=== PATIENT | female | born 1975 | race Two or more races ===

== ENCOUNTER 2016-09-28 19:35 | Inpatient (IN) | payer OTHER ==
[2016-09-28 20:49] VITALS: BMI 29.0
[2016-09-28 20:50] LABS: BASOPHIL 0.5 % (0-2.0); EOSINOPHIL 0.5 % (0-4.5); MCH 26.8 pg (25.7-33.7); MCHC 32.4 g/dl (32.0-36.0); MEAN CELL VOLUME 82.6 fl (80-96); MEAN PLT VOLUME 9.4 fl (7.5-11.1); NEUTROPHILS 81.1 % (42.8-82.8); PLATELET COUNT 282 K/MM3 (134-434); RDW 15.2 % (11.6-15.6); WHITE BLOOD COUNT 14.3 K/mm3 (4.0-10.0)
[2016-09-28 21:00] LABS: INR 0.97 (0.82-1.09); PROTHROMBIN TIME (PATIENT) 10.7 SEC (9.98-11.88)
[2016-09-28 21:03] LABS: ACTIVATED PTT 28.2 SECONDS (26.9-34.4)
[2016-09-28 21:14] LABS: CALCIUM 9.1 mg/dL (8.5-10.1); COCKROFT - GAULT 166.5745; CREATININE 0.5 mg/dL (0.55-1.02)
[2016-09-28 21:26] LABS: HIV 1 & 2 AB NEGATIVE; HIV 1 AGp24 NEGATIVE
[2016-09-28] MEDS ORDERED: CITRIC ACID/SODIUM CITRATE 30 ML UNIT-DOSE CUP PO ONE (21:27)
[2016-09-28] MEDS ORDERED: METHYLERGONOVINE MALEATE 0.2 MG/1 ML AMP IM PRN (21:27)
--- NOTE | 2016-09-28 21:27 | HP ---
Admitting History and Physical - Admission Chief Complaint: breech in labor , srom, meconium History of Present Illness: 41 y/o G4 at term breech with mecoimun. History Source: Patient Limitations to Obtaining History: No Limitations - Past Medical History RESEARCH PROGRAM MANAGER: No: Alzheimer's, CVA, Dementia, Migraine, Multiple Sclerosis, Peripheral Neuropathy, Parkinson's, Seizure, Syncope, TIA, Vertigo, Other Cardiovascular: No: AFIB, Aneurysm, Aortic Insufficiency, Aortic Stenosis, CAD, CHF, Deep Vein Thrombosis, HTN, Hyperlipdemia, MO, Mitral Insufficiency, Mitral Stenosis, Murmur, Pulmonary Hypertension, Other Pulmonary: No: Asthma, Bronchitis, Cancer, COPD, O2 Dependent, Pneumonia, Previously Intubated, Pulmonary Embolus, Pulmonary Fibrosis, Sleep Apnea, Other Gastrointestinal: No: Ascites, Cancer, Constipation, Crohn's Disease, Diverticulitis, Diverticulosis, Esophageal Varices, Gastritis, GERD, GI Bleed, Hemorrhoids, Hiatal Hernia, Inflamatory Bowel Disease, Irritable Bowel Disease, Pancreatitis, Peptic Ulcer Disease, Ulcerative Colitis, Other Hepatobiliary: No: Cirrhosis, Cholelithiasis, Cholecystitis, Choledocholithiasis , Hepatitis A, Hepatitis B, Hepatitis C, Other Reproductive: No: Ectopic , Endometriosis, Fibroids, PID, Polycystic Ovary Syndrome, Postmenopausal, Other ...: 4 ...Para: 3 Heme/Onc: No: Anemia, B12 Deficiency, Bleeding Disorder, Cancer, Current Chemotherapy, Current Radiation Therapy, Hemochromatosis, Hypercoaguable State, Myeloproliferative Synd, Sickle Cell Disease, Sickle Cell Trait, Thrombocytopenia, Other Infectious Disease: No: AIDS, C-Diff, Herpes Zoster, HIV, MRSA, STD's, Tuberculosis, VREF, Other Psych: No: Addictions, Anxiety, Bipolar, Depression, Panic, Psychosis, Schizophrenia, Other Musculoskeletal: No: Bursitis, Chronic low back pain, Hemiparesis, Hemiplegia, Osteoarthritis, Paraplegia, Other Rheumatology: No: Fibromyalgia, Gout, Lupus, Rheumatoid Arthritis, Sarcoidosis, Vasculitis, Other ENT: No: Allergic Rhinitis, Sinusitis, Other Endocrine: No: Clifford's Disease, Wellington's Disease, Diabetes Insipidus, Diabetes Mellitus, Hyperparathyroidism, Hyperthyroidism, Hypothyroidism, Osteopenia, SIADH, Other Dermatology: No: Basal Cell, Cellulitis, Eczema, Melanoma, Psoriasis, Squamous Cell, Other - Past Surgical History Past Surgical History: No: None, AAA Repair, AICD, Amputation, Appendectomy, Arthrosocopy, AV Fistula/Graft, Bariatric Surgery, Breast Biopsy, Bypass, CABG, Carotid Endarterectomy, Cataract Removal, Cholecystectomy, Colectomy, Colonoscopy, Colostomy, Craniotomy, , Cystectomy, Hernia Repair, Hysterectomy, Ileal Conduit, Ileosotomy, Joint Replacement, Kidney Transplant, Laminectomy, Liver Transplant, Mastectomy, Nephrectomy, Oopherectomy, Orchiectomy, Permanent Pacemaker, Prostatectomy, Splenectomy, Stent, Thoracotomy , TURP, Tonsillectomy, Tubal Ligation, Upper Endoscopy, Valve Replacement, Vasectomy, Vein Stripping/Ligation - Advance Directives Advance Directives: No: Living Will, Health Care Proxy, DNR, Organ Donor, Tissue Donor, MOLST - Smoking History Smoking history: Never smoked Have you smoked in the past 12 months: No - Alcohol/Substance Use Hx Alcohol Use: No History of Substance Use: denies: None, Cocaine, Heroin, Marijuana, Prescription , Tranquilizers - Social History Usual Living Arrangement: No: Alone, With Spouse, With Parent, With Significant Other, With Child, Assisted Living, Shelter, Other Home Medications - Allergies Allergies/Adverse Reactions: Allergies Allergy/AdvReac Type Severity Reaction Status Date / Time No Known Allergies Allergy Verified 08/14/15 09:28 - Home Medications Home Medications: Ambulatory Orders NK [No Known Home Medication] 08/14/15 Review of Systems - Review of Systems Constitutional: reports: No Symptoms Eyes: reports: No Symptoms HENT: reports: No Symptoms Neck: reports: No Symptoms Cardiovascular: reports: No Symptoms Respiratory: reports: No Symptoms Gastrointestinal: reports: No Symptoms Genitourinary: reports: No Symptoms Breasts: reports: No Symptoms Reported Musculoskeletal: reports: No Symptoms Integumentary: reports: No Symptoms Neurological: reports: No Symptoms Endocrine: reports: No Symptoms Hematology/Lymphatic: reports: No Symptoms Physical Examination Vital Signs: Vital Signs Temperature 97.6 F 09/28/16 20:40 Pulse Rate 104 H 09/28/16 20:40 Respiratory Rate 20 09/28/16 20:40 Blood Pressure 129/82 09/28/16 20:40 O2 Sat by Pulse Oximetry (%) Labs: CBC, BMP 09/28/16 20:46 05/28/17 20:46 Assessment/Plan as above breech consent for cs r/b explained
[2016-09-28] MEDS ORDERED: ELECTROLYTE-148 SOLN 1,000 ML IV SCH (21:30)
[2016-09-28] MEDS ORDERED: OXYTOCIN 20 UNITS in 0.9% NS 1,000 ML IV SCH (21:30)
[2016-09-28] MEDS ORDERED: TUBERCULIN PPD 5 TU/0.1ML SYRINGE (IN PATIENT USE ONLY) ID ONE (22:00)
[2016-09-28] MEDS ORDERED: ONDANSETRON 4 MG/2 ML VIAL IVPB PRN (22:43)
[2016-09-28] MEDS ORDERED: AMPICILLIN - 100 ML IVPB ONE (23:45)
[2016-09-28 23:53] LABS: ARTERIAL BLD GAS O2 SATURATION 72.7 % (90-98.9); ARTERIAL BLOOD GAS BASE EXCESS -3.5 meq/l (-2-2); ARTERIAL BLOOD GAS HCO3 20.7 meq/L (22-26); ARTERIAL BLOOD GAS pH 7.37 (7.35-7.45)
[2016-09-28 23:54] LABS: ARTERIAL BLOOD GAS PO2 35.7 mmHg (80-100); LPM/O2% 21%; PT. ON O2? no; TYPE OF O2 room air
[2016-09-29] MEDS ORDERED: METHYLERGONOVINE MALEATE 0.2 MG/1 ML AMP IM ONE (00:45)
[2016-09-29 01:31] LABS: URINE MARIJUANA THC NEGATIVE ng/ml (CUTOFF=50)
--- NOTE | 2016-09-29 04:30 | PN ---
Post Progress Note Post Day: 1 Type of Delivery: Primary C/S Vital Signs: Vital Signs Temperature 98.1 F 09/29/16 01:28 Pulse Rate 75 09/29/16 01:28 Respiratory Rate 20 09/29/16 02:00 Blood Pressure 105/57 09/29/16 01:28 O2 Sat by Pulse Oximetry (%) 100 09/29/16 00:15 Breast Exam: Yes: Soft Uterus: Yes: Fundus Firm Incision: Yes: Dressing dry and intact Abdomen/GI: Yes: Abdomen soft Lochia: Yes: Rubra Lochia, amount: Small Extremities: Yes: Calves non-tender Perineum: Yes: Intact Activity: Ambulating - Labs Labs: CBC WBC 14.3 K/mm3 (4.0-10.0) H D 09/28/16 20:46 RBC 4.50 M/mm3 (3.60-5.2) 09/28/16 20:46 Hgb 12.0 GM/dL (10.7-15.3) 09/28/16 20:46 Hct 37.2 % (32.4-45.2) 09/28/16 20:46 MCV 82.6 fl (80-96) 09/28/16 20:46 MCHC 32.4 g/dl (32.0-36.0) 09/28/16 20:46 RDW 15.2 % (11.6-15.6) 09/28/16 20:46 Plt Count 282 K/MM3 (134-434) 09/28/16 20:46 MPV 9.4 fl (7.5-11.1) D 09/28/16 20:46 Neutrophils % 81.1 % (42.8-82.8) 09/28/16 20:46 Lymphocytes % 11.1 % (8-40) 09/28/16 20:46 Monocytes % 6.8 % (3.8-10.2) 09/28/16 20:46 Eosinophils % 0.5 % (0-4.5) 09/28/16 20:46 Basophils % 0.5 % (0-2.0) 09/28/16 20:46 Assessment/Plan as above ob reg diet check labs
[2016-09-29 07:42] LABS: BASOPHIL 0.6 % (0-2.0); EOSINOPHIL 0.6 % (0-4.5); MCH 27.5 pg (25.7-33.7); MCHC 32.7 g/dl (32.0-36.0); MEAN CELL VOLUME 84.1 fl (80-96); MEAN PLT VOLUME 9.4 fl (7.5-11.1); NEUTROPHILS 73.9 % (42.8-82.8); PLATELET COUNT 206 K/MM3 (134-434); WHITE BLOOD COUNT 12.3 K/mm3 (4.0-10.0)
--- NOTE | 2016-09-29 11:48 | PN ---
Progress Note (short form) - Note Progress Note: ANESTHESIOLOGY POST-OP CHECK 41F s/p under spinal anesthesia POD #1. No acute complaints. Tolerating PO liquids, not yet OOB, beebe in place. Denies N/V, backache, headache, pain 6/10 and tolerable. Vital Signs Temperature 98.6 F 09/29/16 10:00 Pulse Rate 79 09/29/16 10:00 Respiratory Rate 18 09/29/16 10:00 Blood Pressure 103/66 09/29/16 10:00 O2 Sat by Pulse Oximetry (%) 100 09/29/16 00:15 Active Medications Acetaminophen (Tylenol -) 650 mg PO Q4H PRN PRN Reason: FEVER OR PAIN Bisacodyl (Dulcolax Suppository -) 10 mg RC PRN PRN PRN Reason: CONSTIPATION Diphenhydramine HCl (Benadryl Injection -) 25 mg IVPUSH Q4H PRN PRN Reason: Pruritis Diphtheria/Tetanus/Acell Pertussis (Boostrix -) 0.5 ml IM .ONCE ONE Stop: 09/30/16 10:01 Oxytocin/Sodium Chloride (Normal Saline+20 Units Oxytocin -) 1,000 mls @ 125 mls/hr IV ASDIR ALEXEY Last Admin: 09/28/16 23:18 Dose: 125 mls/hr Ibuprofen (Motrin -) 600 mg PO Q4H PRN PRN Reason: PAIN Methylergonovine Maleate (Methergine Injection -) 0.2 mg IM Q4H PRN PRN Reason: Excessive Bleeding (L&D) Last Admin: 09/29/16 06:06 Dose: 0.2 mg Oxycodone HCl (Roxicodone -) 5 mg PO Q4H PRN PRN Reason: PAIN LEVEL 1-5 Simethicone (Mylicon -) 80 mg PO Q4H PRN PRN Reason: GAS Gen: Awake, alert Ext: No motor or sensory deficits of bilateral lower ext No apparent anesthesia complications. Pain controlled. Continue management as per primary team.
[2016-09-29] MEDS: SIMETHICONE 80 MG TAB.CHEW (FP) PO PRN ×3 (13:10→23:39)
[2016-09-29] MEDS: IBUPROFEN 600 MG TABLET (FP) PO PRN ×3 (13:11→23:39)
[2016-09-29] MEDS: ACETAMINOPHEN 325 MG TABLET (FP) PO PRN (13:11)
[2016-09-29] MEDS: oxyCODONE HCL 5 MG TABLET PO PRN ×2 (18:22→23:39)
[2016-09-29] MEDS ORDERED: BISACODYL 10 MG SUPP.RECT RC PRN (21:28)
[2016-09-30] MEDS: IBUPROFEN 600 MG TABLET (FP) PO PRN ×4 (05:13→20:45)
[2016-09-30] MEDS: SIMETHICONE 80 MG TAB.CHEW (FP) PO PRN ×4 (05:13→20:47)
[2016-09-30] MEDS: ACETAMINOPHEN 325 MG TABLET (FP) PO PRN ×4 (05:13→20:46)
[2016-09-30] MEDS ORDERED: DIPHTH,PERTUSS(ACELL),TET 0.5 ML DISP.SYRIN IM ONE (10:00)
--- NOTE | 2016-09-30 13:16 | PN ---
Post Progress Note - Subjective Subjective: 41 yo Para 4, status post primary , seen and evaluated. She's doing well, no complaints. She's breast feeding. Type of Delivery: Primary C/S Vital Signs: Vital Signs Temperature 98 F 09/30/16 12:45 Pulse Rate 61 09/30/16 12:45 Respiratory Rate 20 09/30/16 12:45 Blood Pressure 92/56 09/30/16 12:45 O2 Sat by Pulse Oximetry (%) 100 09/29/16 00:15 Breast Exam: Yes: Soft Uterus: Yes: Fundus Firm Incision: Yes: Ilene intact Abdomen/GI: Yes: Abdomen soft, Tolerating PO Lochia: Yes: Rubra Lochia, amount: Small Extremities: Yes: Calves non-tender Perineum: Yes: Intact Activity: Ambulating - Labs Labs: CBC WBC 12.3 K/mm3 (4.0-10.0) H 09/29/16 06:00 RBC 3.07 M/mm3 (3.60-5.2) L D 09/29/16 06:00 Hgb 8.4 GM/dL (10.7-15.3) L D 09/29/16 06:00 Hct 25.8 % (32.4-45.2) L D 09/29/16 06:00 MCV 84.1 fl (80-96) 09/29/16 06:00 MCHC 32.7 g/dl (32.0-36.0) 09/29/16 06:00 RDW 15.0 % (11.6-15.6) 09/29/16 06:00 Plt Count 206 K/MM3 (134-434) D 09/29/16 06:00 MPV 9.4 fl (7.5-11.1) 09/29/16 06:00 Neutrophils % 73.9 % (42.8-82.8) 09/29/16 06:00 Lymphocytes % 13.5 % (8-40) D 09/29/16 06:00 Monocytes % 11.4 % (3.8-10.2) H 09/29/16 06:00 Eosinophils % 0.6 % (0-4.5) 09/29/16 06:00 Basophils % 0.6 % (0-2.0) 09/29/16 06:00 Problem List - Problems (1) Status post primary low transverse section Code(s): Z98.891 - HISTORY OF UTERINE SCAR FROM PREVIOUS SURGERY Assessment/Plan Status post primary Stable Continue routine Post op care
[2016-10-01] MEDS: IBUPROFEN 600 MG TABLET (FP) PO PRN ×2 (03:34→08:13)
[2016-10-01] MEDS: ACETAMINOPHEN 325 MG TABLET (FP) PO PRN ×2 (03:37→08:14)
--- NOTE | 2016-10-01 05:58 | PN ---
Post Progress Note - Subjective Subjective: c/o pain scale 4-5 Post Day: 3 Type of Delivery: Primary C/S Vital Signs: Vital Signs Temperature 98.7 F 09/30/16 22:00 Pulse Rate 87 09/30/16 22:00 Respiratory Rate 18 09/30/16 22:00 Blood Pressure 118/60 09/30/16 22:00 O2 Sat by Pulse Oximetry (%) 100 09/29/16 00:15 Breast Exam: Yes: Soft, Other (BF ). No: Engorged Uterus: Yes: Fundus Firm, Fundus below umbilicus, Non-tender Incision: Yes: [place] intact. No: Redness, Oozing Abdomen/GI: Yes: Abdomen soft, Passing flatus, Tolerating PO (diet). No: Abdominal Distention, Tender Lochia: Yes: Rubra Lochia, amount: Moderate Extremities: Yes: Calves non-tender, Edema Perineum: Yes: Intact Activity: Ambulating - Labs Labs: CBC WBC 12.3 K/mm3 (4.0-10.0) H 09/29/16 06:00 RBC 3.07 M/mm3 (3.60-5.2) L D 09/29/16 06:00 Hgb 8.4 GM/dL (10.7-15.3) L D 09/29/16 06:00 Hct 25.8 % (32.4-45.2) L D 09/29/16 06:00 MCV 84.1 fl (80-96) 09/29/16 06:00 MCHC 32.7 g/dl (32.0-36.0) 09/29/16 06:00 RDW 15.0 % (11.6-15.6) 09/29/16 06:00 Plt Count 206 K/MM3 (134-434) D 09/29/16 06:00 MPV 9.4 fl (7.5-11.1) 09/29/16 06:00 Neutrophils % 73.9 % (42.8-82.8) 09/29/16 06:00 Lymphocytes % 13.5 % (8-40) D 09/29/16 06:00 Monocytes % 11.4 % (3.8-10.2) H 09/29/16 06:00 Eosinophils % 0.6 % (0-4.5) 09/29/16 06:00 Basophils % 0.6 % (0-2.0) 09/29/16 06:00 Assessment/Plan post c/section, Anemia , stable. anemia counselled will rtc for benny removal on Thursday Discharge today
[2016-10-01 07:28] VITALS: BP 107/64; PULSE 78; TEMP 98.4
[2016-10-01 07:34] LABS: BASOPHIL 0.7 % (0-2.0); EOSINOPHIL 3.4 % (0-4.5); MCH 27.8 pg (25.7-33.7); MCHC 32.7 g/dl (32.0-36.0); MEAN CELL VOLUME 85.1 fl (80-96); MEAN PLT VOLUME 8.9 fl (7.5-11.1); NEUTROPHILS 71.5 % (42.8-82.8); PLATELET COUNT 222 K/MM3 (134-434); RDW 14.6 % (11.6-15.6); WHITE BLOOD COUNT 11.7 K/mm3 (4.0-10.0)
[2016-10-01] MEDS: SIMETHICONE 80 MG TAB.CHEW (FP) PO PRN (08:13)
--- NOTE | 2016-10-03 13:56 | PATH ---
Surgical Pathology Report Patient Name: YESSICA MARSH Med. Rec. #: [id number] /Age/Gender: 1975 (Age: 41) / F Account: [id number] Location: [facility] OBS/PIPELINE OPERATOR Taken: 09/26/2016 Received: 09/30/2016 Reported: 10/03/2016 Physicians: Geovanny Blanton M.D. Specimen(s) Received PLACENTA Clinical History -3 previous NSVDs, AMA, one visit Primary c/section-breech in labor Final Diagnosis PLACENTA, DELIVERY: FOCALLY DISRUPTED THIRD TRIMESTER PLACENTA WITH MODERATE PREVILLOUS, PERIVILLOUS, AND PRECHORIONIC FIBRIN DEPOSITION, THREE VESSEL UMBILICAL CORD, AND PLACENTAL MEMBRANES WITH ACUTE CHORIOAMNIONITIS AND MECONIUM HISTOCYTOSIS. Electronically Signed Chi Cardozo M.D. Gross Description The specimen is received fresh, labeled "placenta" and is a 482 gram, 22.5 x 16.5 x 2.2 cm placenta with attached membranes and umbilical cord. The attached membranes are ballesteros-green, meconium stained, translucent with focal opacities and insert marginally. The umbilical cord measures 11 cm in length and averages 1.3 cm in diameter. The cord inserts eccentrically, 6.5 cm to the nearest margin. No true knots or strictures are identified. Cut surface of the umbilical cord reveals 3 vessels. The surface is garvey-green with fibrin deposition and appropriate caliber vessels. The maternal surface is red-brown with focal defects. Sectioning reveals red-brown, spongy parenchyma. No focal lesions are identified. Logging Equipment Mechanic sections are submitted in three cassettes as follows: 1- membrane rolls and umbilical cord; 2-3- full thickness sections of placenta. /10/02/2016 saudi10/02/2016
--- NOTE | 2016-10-06 11:34 | OP ---
DATE OF OPERATION: HISTORY OF PRESENT ILLNESS: A 41-year-old female with prior section for repeat in labor. POSTOPERATIVE DIAGNOSIS: A 41-year-old female with prior section for repeat in labor. PROCEDURE: Repeat section. OPERATING SURGEON: Amy Blanton MD APARTMENT HOUSE MANAGER: ANESTHESIA: Spinal anesthesia ESTIMATED BLOOD LOSS: 500 mL. URINE OUTPUT: Catheterized specimen throughout the case. SPECIMENS: None. DISPOSITION: To the recovery room in stable condition. DESCRIPTION OF PROCEDURE: The patient was entered to the operating suite. The patient was put on the table in dorsal supine position, prepped and draped in the usual sterile fashion. Low Pfannenstiel type was carried down to the level of the fascia. The fascia was then transected to the left and right of midline. The muscle was then identified and split digitally in the midline. Peritoneum was then seen and then entered sharply. The gravid uterus was then identified after bladder flap was created. Transverse was made. A gush of fluid was then identified. The incision was then extended bilaterally. The infant's head was then delivered atraumatically. The body was to follow. The cord was clamped and cut, and the was then handed off to awaiting paint laboratory technician. The placenta had been removed. The inferior aspect of the uterus was cleaned with a semiwet lap pad. The uterus was closed with Biosyn suture. The right and left pericolic gutters were identified. No gross bleeding seen. The peritoneum with the muscle was then approximated. The fascia was then closed with Biosyn suture. Skin benny were applied. The patient was sent to the recovery room in stable, alert condition. AMY BLANTON M.D. [id number]
== END 2016-10-01 13:15 | disposition home or self-care (01) | DRG 540 ==
LOC: JLDR 19:35 → J3W 09-29 01:14
PROVIDERS: ADMIT Obstetrics & Gynecology; ATTEND Obstetrics & Gynecology
PROC: 10D00Z1 Extraction of Products of Conception, Low, Open Approach (ICD-10-PCS; principal; 2016-09-28)
DX: O32.1XX0 Maternal care for breech presentation, not applicable or unspecified (principal); O99.02 Anemia complicating childbirth; D64.9 Anemia, unspecified; O09.523 Supervision of elderly multigravida, third trimester; Z3A.40 40 weeks gestation of pregnancy; O41.1230 Chorioamnionitis, third trimester, not applicable or unspecified; Z37.0 Single live birth
CPT/HCPCS: 36415; 36600; 80048; 80307; 82803; 85025; 85610; 85730; 86593; 86850; 86900; 86901; 87389; 88307-TC; 90715